=== PATIENT | female | born 2000 | race Hispanic/Latino ===

== ENCOUNTER 2019-05-08 20:30 | Emergency (ER) | payer BC, OTHER ==
[~2019-05-08] VITALS: Ht 154.9 cm; Wt 99.8 kg
[~2019-05-08 20:30] MED LIST: METHYLPHENIDATE; Z LITHIUM CARBON; [UNRECOGNIZED DRUG - OTHER]
[2019-05-08 21:16] LABS: STREPTOCOCCUS GRP A ANTIGEN NEGATIVE (NEGATIVE)
[2019-05-08 21:31] LABS: INFLUENZAE A&B ANTIGEN (RAPID) NEGATIVE (NEGATIVE)
--- NOTE | 2019-05-08 22:47 | Diagnostic Imaging Report ---
EXAMINATION: CHEST 2 VIEWS INDICATION: Fever, cough. COMPARISON: None FINDINGS: TUBES and LINES: None. LUNGS: Lungs are well inflated. Mild bronchial wall thickening. No evidence of lobar pneumonia. PLEURA: No pleural effusion or pneumothorax. HEART AND MEDIASTINUM: The cardiomediastinal silhouette is unremarkable. BONES AND SOFT TISSUES: No acute osseous lesion. Soft tissues are unremarkable. UPPER ABDOMEN: No free air under the diaphragm. IMPRESSION: Mild bronchial wall thickening, which may represent bronchitis in the setting of cough. No evidence of lobar pneumonia. Signed by: Dr. Eloisa Nathan MD on 05/08/2019 10:44 PM
== END 2019-05-08 23:10 | disposition home or self-care (01) ==
LOC: ER 20:30
DX: R05 Cough (principal); J20.9 Acute bronchitis, unspecified; B34.9 Viral infection, unspecified; F17.210 Nicotine dependence, cigarettes, uncomplicated
CPT/HCPCS: 71046; 83518; 87070; 87400; 99283

== ENCOUNTER 2019-06-11 08:47 | Emergency (ER) | payer BC, OTHER ==
[~2019-06-11] VITALS: Ht 154.9 cm; Wt 99.8 kg
--- OUTSIDE RECORDS SUMMARY | 2019-06-11 08:50 | XMS REPORT ---
Author Author [facility] Address Unknown Phone Unavailable Care Team Providers Care President [employer] Name Role Phone ALISHA ALVAREZ PP TERENCE HERNANDEZ Unavailable Unavailable Payers Payer Name Policy Type Policy Number Effective Date Expiration Date [facility] [id number] 2008 00:00:00 [facility] [id number] 2008 00:00:00 Problems This patient has no known problems. Allergies, Adverse Reactions, Alerts This patient has no known allergies or adverse reactions. Medications Ordered Medication Name Filled Medication Name Start Date Stop Date Current Medication? Ordering Clinician Indication Dosage Frequency Signature (SIG) Comments Components [place] Carbonate 300 Mg Capsule [place] Carbonate 300 Mg Capsule Yes Methadine Methadine Yes Methylphenidate Hcl (Ritalin La) 30 Mg Cpmp.50.50 Methylphenidate Hcl (Ritalin La) 30 Mg Cpmp.50.50 Yes Procedures and Interventions Procedure Date / Time Performed Performing Clinician X-ray of chest, two views 2019-05-08 00:00:00 TERENCE HERNANDEZ Encounters Start Date/Time End Date/Time Encounter Type Admission Type Attending Clinicians Care Facility Care Department Encounter ID 2019-05-08 20:30:00 2019-05-08 23:10:00 Departed Emergency Room 1 TERENCE HERNANDEZ [facility] [id number] Results Test Description Test Time Test Comments Text Results Atomic Results Result Comments CHEST 2 VIEWS 2019-05-08 22:42:00 [place] [address] Patient Name: RICHIE BENOIT MR #: [id number] : 2000 Age/Sex: 18/F Req #: [id number] Adm Physician: Ordered by: TERENCE HERNANDEZ DO Report #: [id number] Location: ER Room/Bed: Procedure: [id number] DX/CHEST 2 VIEWS Exam Date: 05/08/19 Exam Time: 2128 REPORT STATUS: Signed EXAMINATION: CHEST 2 VIEWS INDICATION: Fever, cough. COMPARISON: None FINDINGS: TUBES and LINES: None. LUNGS: Lungs are well inflated. Mild bronchial wall thickening. No evidence of lobar pneumonia. PLEURA: No pleural effusion or pneumothorax. HEART AND MEDIASTINUM: The cardiomediastinal silhouette is unremarkable. BONES AND SOFT TISSUES: No acute osseous lesion. Soft tissues are unremarkab le. UPPER ABDOMEN: No free air under the diaphragm. IMPRESSION: Mild bronchial wall thickening, which may represent bronchitis in the setting of cough. No evidence of lobar pneumonia. Signed by: Dr. Ramesh Vera MD on 05/08/2019 10:44 PM Dictated By: RAMESH VERA MD 43 Transcribed By: ADAN on 05/08/192243 COPY TO: TERENCE HERNANDEZ DO Influenza Virus Types A,B Antigen 2019-05-08 21:31:00 Influenza Virus Types A,B Antigen (test zzov=83654-2) NEGATIVE NEGATIVE Group A Streptococcus [id number] 21:16:00* Test Item Value Reference Range Comments Group A Streptococcus Screen (test agbz=07095-2) NEGATIVE NEGATIVE
[2019-06-11 08:54] VITALS: BP 149/93
[2019-06-11] MEDS ORDERED: PREDNISONE 20 MG TAB PO ONE (09:00)
[2019-06-11] MEDS ORDERED: ALBUTEROL/IPRATROPIUM 3 ML NEB NEB ONE (09:00)
[2019-06-11] MEDS ORDERED: ONDANSETRON HCL 4 MG ORAL DISINTEGRATING TAB PO ONE (09:00)
[2019-06-11] MEDS ORDERED: KETOROLAC TROMETHAMINE 60 MG/2 ML VIAL IM ONE (09:00)
--- NOTE | 2019-06-11 09:43 | Diagnostic Imaging Report ---
Comparison: 05/08/2019 History: Cough, shortness of breath Findings: Lungs clear. No pleural effusions or pneumothorax. The heart shadow and pulmonary vascularity are normal in appearance. The thoracic aorta appears normal in caliber. No skeletal abnormalities are visualized. Impression: No evidence of acute cardiopulmonary disease. Signed by: Xavier Paulino MD on 06/11/2019 9:40 AM
[2019-06-11] MEDS ORDERED: PROAIR HFA INH8.5 GM PO (09:54)
[2019-06-11] MEDS ORDERED: AZITHROMYCIN500 MG PO (09:54)
[2019-06-11] MEDS ORDERED: PREDNISONE20 MG PO (09:54)
== END 2019-06-11 10:07 | disposition home or self-care (01) ==
LOC: ER 08:47
DX: R07.89 Other chest pain (principal); R05 Cough; J45.909 Unspecified asthma, uncomplicated
CPT/HCPCS: 71046; 81025; 99283; J1885; J7512; Q0162

== ENCOUNTER 2020-01-15 03:57 | Emergency (ER) | payer BC, OTHER ==
[~2020-01-15] VITALS: Ht 154.9 cm; Wt 99.8 kg
[~2020-01-15 03:57] MED LIST changes: +AZITHROMYCIN500 MG PO; +PREDNISONE20 MG PO; +PROAIR HFA INH8.5 GM PO
--- NOTE | 2020-01-15 04:07 | NUR ---
bladder scan amout:451ml
--- NOTE | 2020-01-15 04:10 | Emergency Department Note ---
History of Present Illnes History of Present Illness Chief Complaint: Abdominal Complaints History of Present Illness This is a 19 year old female WALKS IN TO ED FOR CONCERNS OF SUPRAPUBIC PAIN. PAIN STARTED ABOUT 6 HOURS AGO. STATES SINCE THE PAIN IS SO BAD SHE IS UNABLE TO URINATE. DR COSTA IN TRIAGE, UA/BLADDER SCAN BEING OBTAINED . Historian: Patient Arrival Mode: Car Chopper Feeder Required: No Onset (how long ago): hour(s) (6) Location: lower abd/supra pubic Quality: pain Radiation: Reports non-radiation Severity: moderate Onset quality: gradual Duration (how long): hour(s) (6) Timing of current episode: constant Progression: worsening Chronicity: new Context: Denies recent illness, Denies recent surgery Relieving factors: none Exacerbating factors: none Associated symptoms: Reports other (unable to urinate) Past Medical/Family History Physician Review I have reviewed the patient's past medical and family history. Any updates have been documented here. Past Medical History Recent Fever: No Clinical Suspicion of Infectio: No New/Unexplained Change in Ment: No Other Medical History: BIPOLAR DISORDER, ADHD. ANXIETY Past Surgical History: None Social History Smoking Cessation: Never Smoker Alcohol Use: None Any Illegal Drug Use: No Family History Family history of heart diseas: No Other Last Tetanus: UNKNOWN Review of Systems Review of Systems Constitutional: Reports no symptoms EENTM: Reports no symptoms Cardiovascular: Reports no symptoms Respiratory: Reports no symptoms Gastrointestinal: Reports no symptoms Genitourinary: Reports as per HPI Musculoskeletal: Reports no symptoms Integumentary: Reports no symptoms Neurological: Reports no symptoms Psychological: Reports no symptoms Endocrine: Reports no symptoms Hematological/Lymphatic: Reports no symptoms Physical Exam Related Data Allergies: Coded Allergies: No Known Drug Allergies (Verified Allergy, Mild, 03/02/10) Triage Vital Signs Vital Signs Date Time Temp Pulse Resp B/P (MAP) Pulse Ox O2 Delivery O2 Flow Rate FiO2 01/15/20 04:03 98.7 104 18 122/92 100 Room Air Vital signs reviewed: Yes Physical Exam CONSTITUTIONAL Constitutional: Present well-developed, Present well-nourished HENT HENT: Present normocephalic, Present atraumatic, Present oropharynx clear/moist, Present nose normal HENT L/R: Present left ext ear normal, Present right ext ear normal EYES Eyes: Reports PERRL, Reports conjunctivae normal NECK Neck: Present ROM normal PULMONARY Pulmonary: Present effort normal, Present breath sounds normal CARDIOVASCULAR Cardiovascular: Present regular rhythm, Present heart sounds normal, Present capillary refill normal, Present normal rate GASTROINTESTINAL Abdominal: Present soft, Present bowel sounds normal, Present tender (moderate supra pubic, bladder distended) GENITOURINARY Genitourinary: Present exam deferred SKIN Skin: Present warm, Present dry MUSCULOSKELETAL Musculoskeletal: Present ROM normal NEUROLOGICAL Neurological: Present alert, Present oriented x 3, Present no gross motor or sensory deficits PSYCHOLOGICAL Psychological: Present mood/affect normal, Present judgement normal Results Laboratory Lab results reviewed: Yes Laboratory comments Laboratory Tests Test 01/15/20 04:10 Urine Color Yellow (YELLOW) Urine Clarity Sl cloudy (CLEAR) Urine pH 6.5 (5 - 7) Urine Specific [place] >=1.030 (1.010-1.025) Urine Protein Negative (NEGATIVE) Urine Glucose (UA) Negative (NEGATIVE) Urine Ketones Negative (NEGATIVE) Urine Blood Negative (NEGATIVE) Urine Nitrite Negative (NEGATIVE) Urine Bilirubin Negative (NEGATIVE) Urine Urobilinogen 0.2 mg/dL (0.2 - 1) Urine Leukocyte Esterase Negative (NEGATIVE) Urine RBC 0-5 /HPF (0-5) Urine WBC 6-10 /HPF (0-5) Urine Epithelial Cells Few /LPF (NONE) Urine Amorphous Sediment Few (FEW) Urine Bacteria Moderate /HPF (NONE) Urine Test Negative (NEGATIVE) Assessment & Plan Medical Decision Making MDM pt with suprapubic pain and unable to urinate bladder scan performed and shows 451 cc urine in bladder cates cath ordered, ua ordered, to eval for uti cates cath placed 700 cc urine output Assessment & Plan Final Impression: (1) Urinary retention (2) UTI (urinary tract infection) Depart Disposition: HOME, SELF-CARE Last Vital Signs Date Time Temp Pulse Resp B/P (MAP) Pulse Ox O2 Delivery O2 Flow Rate FiO2 01/15/20 04:03 98.7 104 18 122/92 100 Room Air Home Meds Active Scripts Azithromycin (AZITHROMYCIN) 500 Mg Tablet, 1 TAB PO DAILY for 5 Days, #5 Prov:MIAH IVAN 06/11/19 Prednisone (PREDNISONE) 20 Mg Tab, 60 MG PO DAILY for 5 Days, #15 TAB start tomorrow Prov:MIAH IVAN 06/11/19 Albuterol Sulf* (PROAIR HFA INHALER*) 8.5 Gm Inh, 2 INH PO Q4HR PRN for SHORTNESS OF BREATH for 14 Days, #1 INH dispense with spacer Prov:MIAH IVAN 06/11/19 Reported Medications [Methadine] No Conflict Check 09/26/10 Methylphenidate Hcl (Ritalin La) 30 Mg Cpmp.50.50 09/26/10 [place] Carbonate ([place] Carbonate) 300 Mg Capsule 09/26/10 JENNIFER COSTA MD Jan 15, 2020 04:10
--- NOTE | 2020-01-15 04:24 | NUR ---
700CC OUTPUT UPON MUÑOZ INSERTION
[2020-01-15 04:26] LABS: CLARITY,URINE SL CLOUDY (CLEAR); COLOR,URINE YELLOW (YELLOW); KETONES,URINE NEGATIVE (NEGATIVE); LEUKOCYTE ESTERASE ,URINE NEGATIVE (NEGATIVE); NITRITE,URINE NEGATIVE (NEGATIVE); PROTEIN,URINE DIPSTICK NEGATIVE (NEGATIVE)
[2020-01-15 04:28] LABS: BILIRUBIN,URINE NEGATIVE (NEGATIVE); URINE UROBILINOGEN 0.2 mg/dL (0.2 - 1)
[2020-01-15 04:34] LABS: AMORPHOUS SEDIMENT,URINE FEW (FEW); BACTERIA,URINE MODERATE /HPF; EPITHELIAL CELLS,URINE FEW /LPF; RBC,URINE 0-5 /HPF (0-5)
--- OUTSIDE RECORDS SUMMARY | 2020-01-15 04:41 | XMS REPORT | Continuity of Care Document ---
Author Author [facility] t Organization [facility] Address [address] [place] [address] Phone Unavailable Care Team Providers Care Oxygen Therapy Technician Name Role Phone NO, PCP PCP Unavailable Kristian Siddiqui MD Attphys GILLIAN IVAN Attphys Unavailable TERENCE HERNANDEZ Attphys Unavailable Payers Payer Name Policy Type Policy Number Effective Date Expiration Date [facility] [id number] 2008 00:00:00 [facility] [id number] 2008 00:00:00 [facility] Problems This patient has no known problems. Allergies, Adverse Reactions, Alerts This patient has no known allergies or adverse reactions. Medications Ordered Medication Name Filled Medication Name Start Date Stop Da te Current Medication? Ordering Clinician Indication Dosage Frequency Signature (SIG) Comments Components Source Albuterol Sulfate (Proair Hfa Inhaler*) 8.5 Gm Inh Alb uterol Sulfate (Proair Hfa Inhaler*) 8.5 Gm Inh 2019-06-11 00:00:00 Yes Jamar Ivan 2 Every 4 Hours as needed for Shortness Of Breath [facility] Azithromycin 500 Mg Tablet Azithromycin 500 Mg Tablet 2019-06-11 00:0 0:00 Yes Jamar Ivan 1 Daily [facility] Prednisone 20 Mg Tab Prednisone 20 Mg Tab 2019-06-11 00:00:00 Yes Jamar Ivan 60 Daily [facility] [place] Carbonate 300 Mg Capsule [place] Carbonate 300 Mg Capsule Yes [facility] Methadine Methadine Yes [facility] Methylphenidate Hcl (Ritalin La) 30 Mg Cpmp.50.50 Meth ylphenidate Hcl (Ritalin La) 30 Mg Cpmp.50.50 Yes [facility] Procedures Procedure Date / Time Performed Performing Clinician [facility] e X-ray of chest, two views 2019-06-11 00:00:00 JAMAR IVAN [facility] X-ray of chest, two views 2019-05-08 00:00:00 TERENCE HERNANDEZ [facility] Encounters Start Date/Time End Date/Time Encounter Type Admission Type [facility] Care Department Encounter ID Source 2019-06-16 22:20:27 2019-06-16 23:45:00 [facility] [id number] 2019-06-11 08:47:00 2019-06-11 10:07:00 Departed Emergency Room 1 JAMAR IVAN [facility] [id number] [facility] 2019-05-08 20:30:00 2019-05-08 23:10:00 Departed Emergency Room 1 TERENCE HERNANDEZ [facility] [id number] [facility] Results Test Description Test Time Test Comments Results Result Comments Source CHEST 2 VIEWS 2019-06-11 09:39:00 [facility] [address] [place] [address] Patient Name: RICHIE BENOIT MR #: [id number] : 2000 Age/Sex: 18/F Req #: [id number] Adm Physician: Ordered by: JAMAR IVAN Report #: [id number] Location: ER Room/Bed: Procedure: [id number] DX/CHEST 2 VIEWS Exam Date: 06/11/19 Exam Time: 914 REPORT STATUS: Signed Comparison: 05/08/2019 History: Cough, shortness of breath Findings: Lungs clear. No pleural effusions or pneumothorax. The heart shadow and pulmonary vascularity are normal in appearance. The thoracic aorta appears normal in caliber. No skeletal abnormalities are visualized. Impression: No evidence of acute cardiopulmonary disease. Signed by: Arabella Elizabeth MD on 06/11/2019 9:40 AM Dictated By: ARABELLA ELIZABETH MD 9 Transcribed By: ADAN on 06/11/19939 COPY TO: JAMAR IVAN Urine Test 2019-06-11 09:15:00 Test Item Urine Test (test code = 2106-3) NEGATIVE NEGATIVE [facility] [id number] 22:42:00 [facility] [address] [place] [address] Patient Name: RICHIE BENOIT MR #: [id number] : 2000 Age/Sex: 18/F Req #: [id number] Adm Physician: Ordered by: TERENCE HERNANDEZ DO Report #: [id number] Location: ER Room/Bed: Procedure: [id number] DX/CHEST 2 VIEWS Exam Date: 05/08/19 Exam Time: 2128 REPORT STATUS: Signed EXAMI NATION: CHEST 2 VIEWS INDICATION: Fever, cough. COMPARISON: None FINDINGS: TUBES and LINES: None. LUNGS: Lungs are well infla constantin. Mild bronchial wall thickening. No evidence of lobar pneumonia. PLE URA: No pleural effusion or pneumothorax. HEART AND MEDIASTINUM: The car diomediastinal silhouette is unremarkable. BONES AND SOFT TISSUES: No acute osseous lesion. Soft tissues are unremarkable. UPPER ABDOMEN: No f ree air under the diaphragm. IMPRESSION: Mild bronchial wall thicken ing, which may represent bronchitis in the setting of cough. No evidence of lo bar pneumonia. Signed by: Dr. Ramesh Vera MD on 05/08/2019 10:44 PM D ictated By: RAMESH VERA MD 2 244 Transcribed By: ADAN on 05/08/19 7556 COPY TO: TERENCE HERNANDEZ DO Influenza Virus Types A,B [id number] 21:31:00* Test Item Value Reference Range Interpretation Comments Influenza Virus Types A,B Antigen (test code = 45009-6) NEGATIVE [facility]IVE [facility] Antigen 2019-05-08 21:31:00* Test Item Value Reference Range Interpretation Comments Influenza Virus Types A,B Antigen (test code = 22137-6) NEGATIVE [facility]GATIVE [facility] Streptococcus [id number] 21:16:00* Test Item Value Reference Range Interpretation Comments Group A Streptococcus Screen (test code = 34525-1) NEGATIVE NEG ATIVE [facility] Streptococcus [id number] 21:16:00* Test Item Value Reference Range Interpretation Comments Group A Streptococcus Screen (test code = 78665-7) NEGATIVE NEG ATIVE [facility]
== END 2020-01-15 05:33 | disposition home or self-care (01) ==
LOC: ER 04:39
DX: R33.9 Retention of urine, unspecified (principal); N39.0 Urinary tract infection, site not specified; R10.30 Lower abdominal pain, unspecified; F31.9 Bipolar disorder, unspecified; F41.9 Anxiety disorder, unspecified; F90.9 Attention-deficit hyperactivity disorder, unspecified type
CPT/HCPCS: 51700; 81001; 81025; 87086; 99283

== ENCOUNTER 2020-04-15 11:24 | Emergency (ER) | payer BC, OTHER ==
[~2020-04-15] VITALS: Ht 154.9 cm; Wt 99.8 kg
[2020-04-15 13:36] VITALS: BP 134/74
== END 2020-04-15 13:37 | disposition home or self-care (01) ==
LOC: ER 11:54
DX: L25.9 Unspecified contact dermatitis, unspecified cause (principal); J45.909 Unspecified asthma, uncomplicated; F31.9 Bipolar disorder, unspecified
CPT/HCPCS: 99282

== ENCOUNTER 2020-09-18 04:36 | Emergency (ER) | payer BC, OTHER ==
[2020-09-18] MEDS ORDERED: PERIDEX473 M1 PO (04:48)
[2020-09-18] MEDS ORDERED: AUGMENTIN 875-1 EACH PO (04:48)
[2020-09-18 05:04] LABS: AMPHETAMINES SCREEN,URINE NEGATIVE (NEGATIVE); BENZODIAZEPINES SCREEN,URINE NEGATIVE (NEGATIVE); PHENCYCLIDINE SCREEN,URINE NEGATIVE (NEGATIVE)
== END 2020-09-18 05:22 | disposition home or self-care (01) ==
LOC: ER 04:45
DX: K02.9 Dental caries, unspecified (principal)
CPT/HCPCS: 80307; 99283

== ENCOUNTER 2020-11-20 17:22 | Emergency (ER) | payer BC, OTHER ==
[~2020-11-20] VITALS: Ht 154.9 cm; Wt 99.8 kg
[~2020-11-20 17:22] MED LIST changes: +AUGMENTIN 875-1 EACH PO; +PERIDEX473 M1 PO
[2020-11-20 17:57] LABS: BACTERIA,URINE FEW /HPF; CLARITY,URINE HAZY (CLEAR); COLOR,URINE YELLOW (YELLOW); EPITHELIAL CELLS,URINE MODERATE /LPF; KETONES,URINE NEGATIVE (NEGATIVE); LEUKOCYTE ESTERASE ,URINE NEGATIVE (NEGATIVE); NITRITE,URINE NEGATIVE (NEGATIVE); PROTEIN,URINE DIPSTICK 1+ (NEGATIVE); RBC,URINE 0-5 /HPF (0-5); URINE UROBILINOGEN 0.2 mg/dL (0.2 - 1); WBC,URINE (MAN) 0-5 /HPF (0-5)
[2020-11-20] MEDS ORDERED: ONDANSETRON HCL INJ 2MG/ML 2ML 2 MG/ML VIAL IV STA (21:05)
[2020-11-20] MEDS ORDERED: MORPHINE SULFATE INJ 4 MG/ML INJ 1ML IV ONE (21:15)
[2020-11-20] MEDS ORDERED: MORPHINE SULFATE 5 MG/ML VIAL IV ONE (21:15)
[2020-11-20 21:20] LABS: BASOPHILS # (AUTO) 0.1 (0.0-0.1); BASOPHILS % 0.5 % (0.0-1.0); EOSINOPHILS # (AUTO) 0.3 (0.0-0.4); EOSINOPHILS % 3.5 % (0.0-6.0); HEMATOCRIT 39.2 % (34.2-44.1); HEMOGLOBIN 12.9 g/dL (12.0-16.0); LYMPHOCYTES # (AUTO) 3.8 (1.0-3.2); LYMPHOCYTES % 40.3 % (18.0-39.1); MEAN CORPUSCULAR HEMOGLOBIN 27.7 pg (28-32); MEAN CORPUSCULAR HGB CONC 32.9 g/dL (31-35); MEAN CORPUSCULAR VOLUME 84.3 fL (81-99); MONOCYTES # (AUTO) 0.5 (0.2-0.8); MONOCYTES % 5.1 % (4.4-11.3); NEUTROPHILS # (AUTO) 4.7 (2.1-6.9); NEUTROPHILS % 50.3 % (38.7-80.0); PLATELET COUNT 349 x10e3/uL (140-360); RED BLOOD COUNT 4.65 x10e6/uL (3.6-5.1); RED CELL DISTRIBUTION WIDTH 13.2 % (11.7-14.4)
[2020-11-20 21:38] LABS: ALBUMIN 4.2 g/dL (3.5-5.0); ALBUMIN/GLOBULIN RATIO 1.2 (0.8-2.0); ANION GAP 11.7 mmol/L (8-16); CALCIUM 9.4 mg/dL (8.4-10.2); CREATININE, SERUM 0.77 mg/dL (0.57-1.11); POTASSIUM 3.7 mmol/L (3.5-5.1)
[2020-11-20] MEDS ORDERED: SODIUM CHLORIDE 0.9% 50ML 50 ML ONE (21:50)
[2020-11-20] MEDS ORDERED: IOPAMIDOL 370 MG/ML 200 ML INFUS..BTL INJ ONE (21:50)
[2020-11-20] MEDS ORDERED: PEPCID20 MG PO (23:02)
== END 2020-11-20 23:30 | disposition home or self-care (01) ==
LOC: ER 17:51
DX: R10.84 Generalized abdominal pain (principal); J45.909 Unspecified asthma, uncomplicated; F41.9 Anxiety disorder, unspecified; F90.9 Attention-deficit hyperactivity disorder, unspecified type; F31.9 Bipolar disorder, unspecified
CPT/HCPCS: 36415; 74177; 80053; 81001; 81025; 83690; 85025; 87086; 99283; J2270 ×2; J2405; Q9967

== ENCOUNTER 2020-11-29 16:42 | Emergency (ER) | payer BC, OTHER ==
[~2020-11-29] VITALS: Ht 154.9 cm; Wt 99.8 kg
[~2020-11-29 16:42] MED LIST changes: +PEPCID20 MG PO
[2020-11-29 17:16] LABS: CLARITY,URINE SL CLOUDY (CLEAR); COLOR,URINE YELLOW (YELLOW); KETONES,URINE NEGATIVE (NEGATIVE); LEUKOCYTE ESTERASE ,URINE NEGATIVE (NEGATIVE); NITRITE,URINE NEGATIVE (NEGATIVE); PROTEIN,URINE DIPSTICK 2+ (NEGATIVE)
[2020-11-29 17:17] LABS: URINE UROBILINOGEN 0.2 mg/dL (0.2 - 1)
[2020-11-29 17:24] LABS: BACTERIA,URINE RARE /HPF; EPITHELIAL CELLS,URINE MODERATE /LPF; RBC,URINE 0-5 /HPF (0-5); WBC,URINE (MAN) 0-5 /HPF (0-5)
[2020-11-29 19:41] VITALS: BP 118/74
== END 2020-11-29 19:21 | disposition home or self-care (01) ==
LOC: ER 17:10
DX: M79.631 Pain in right forearm (principal); Y04.8XXA Assault by other bodily force, initial encounter; Y92.511 Restaurant or cafe as the place of occurrence of the external cause; J45.909 Unspecified asthma, uncomplicated; F31.9 Bipolar disorder, unspecified; F90.9 Attention-deficit hyperactivity disorder, unspecified type; R10.9 Unspecified abdominal pain
CPT/HCPCS: 81001; 81025; 99284

== ENCOUNTER 2021-02-22 08:54 | Emergency (ER) | payer BC ==
[~2021-02-22] VITALS: Ht 154.9 cm; Wt 105.9 kg
[2021-02-22] MEDS ORDERED: PREDNISONE20 MG PO (09:48)
[2021-02-22] MEDS ORDERED: VENTOLIN HFA18 GM INH (09:48)
[2021-02-22] MEDS ORDERED: AZITHROMYCIN250 MG PO (09:48)
== END 2021-02-22 09:55 | disposition home or self-care (01) ==
LOC: FSED 09:00
DX: J06.9 Acute upper respiratory infection, unspecified (principal); J45.909 Unspecified asthma, uncomplicated; F90.9 Attention-deficit hyperactivity disorder, unspecified type; Z79.899 Other long term (current) drug therapy
CPT/HCPCS: 81003; 81025; 83518; 87400; 99283

== ENCOUNTER 2021-03-13 23:31 | Emergency (ER) | payer BC ==
[~2021-03-13] VITALS: Ht 154.9 cm; Wt 104.3 kg
[~2021-03-13 23:31] MED LIST changes: +AZITHROMYCIN250 MG PO; +VENTOLIN HFA18 GM INH
[2021-03-14] MEDS ORDERED: SODIUM CHLORIDE 0.9% 1000ML 1,000 ML IV SCH
[2021-03-14 00:09] LABS: BASOPHILS # (AUTO) 0.1 (0.0-0.1); BASOPHILS % 0.5 % (0.0-1.0); EOSINOPHILS # (AUTO) 0.4 (0.0-0.4); EOSINOPHILS % 3.4 % (0.0-6.0); HEMATOCRIT 38.4 % (34.2-44.1); HEMOGLOBIN 12.3 g/dL (12.0-16.0); LYMPHOCYTES # (AUTO) 4.3 (1.0-3.2); LYMPHOCYTES % 37.5 % (18.0-39.1); MEAN CORPUSCULAR HEMOGLOBIN 27.8 pg (28-32); MEAN CORPUSCULAR VOLUME 86.7 fL (81-99); MONOCYTES # (AUTO) 0.6 (0.2-0.8); MONOCYTES % 4.8 % (4.4-11.3); NEUTROPHILS # (AUTO) 6.1 (2.1-6.9); NEUTROPHILS % 53.6 % (38.7-80.0); PLATELET COUNT 339 x10e3/uL (140-360); RED BLOOD COUNT 4.43 x10e6/uL (3.6-5.1); RED CELL DISTRIBUTION WIDTH 12.8 % (11.7-14.4)
[2021-03-14 00:36] LABS: ALBUMIN/GLOBULIN RATIO 1.3 (0.8-2.0); ANION GAP 15.7 mmol/L (8-16); CALCIUM 9.5 mg/dL (8.4-10.2); CREATININE, SERUM 0.85 mg/dL (0.57-1.11); POTASSIUM 3.7 mmol/L (3.5-5.1)
[2021-03-14 00:56] LABS: CLARITY,URINE CLOUDY (CLEAR); COLOR,URINE YELLOW (YELLOW); KETONES,URINE NEGATIVE (NEGATIVE); LEUKOCYTE ESTERASE ,URINE 1+ (NEGATIVE); NITRITE,URINE NEGATIVE (NEGATIVE); PROTEIN,URINE DIPSTICK NEGATIVE (NEGATIVE); URINE UROBILINOGEN 0.2 mg/dL (0.2 - 1)
[2021-03-14 01:08] LABS: AMORPHOUS SEDIMENT,URINE MANY (FEW); BACTERIA,URINE MANY /HPF; EPITHELIAL CELLS,URINE MANY /LPF; RBC,URINE 0-5 /HPF (0-5); WBC,URINE (MAN) 21-50 /HPF (0-5)
[2021-03-14] MEDS ORDERED: CEPHALEXIN500 MG PO (01:22)
== END 2021-03-14 01:51 | disposition home or self-care (01) ==
LOC: ER 23:50
DX: R10.31 Right lower quadrant pain (principal); N39.0 Urinary tract infection, site not specified; R19.7 Diarrhea, unspecified; F41.9 Anxiety disorder, unspecified; F90.9 Attention-deficit hyperactivity disorder, unspecified type; F31.9 Bipolar disorder, unspecified
CPT/HCPCS: 36415; 71045; 74018; 80053; 81001; 83690; 84702; 85025; 93005; 99284; C9113; J7030

== ENCOUNTER 2021-05-14 00:28 | Emergency (ER) | payer BC ==
[~2021-05-14] VITALS: Ht 154.9 cm; Wt 104.3 kg
[~2021-05-14 00:28] MED LIST changes: +CEPHALEXIN500 MG PO
[2021-05-14] MEDS ORDERED: KETOROLAC TROMETHAMINE 60 MG/2 ML VIAL IM ONE (00:45)
[2021-05-14] MEDS ORDERED: DONNATAL/LIDOCAINE/MAALOX 30 ML SUSP PO ONE (00:45)
[2021-05-14] MEDS ORDERED: PANTOPRAZOLE SO40 MG PO (00:54)
[2021-05-14] MEDS ORDERED: DICYCLOMINE HCL20 MG PO (00:54)
[2021-05-14] MEDS ORDERED: IBUPROFEN600 MG PO (00:54)
[2021-05-14] MEDS ORDERED: LIDOCAINE VISC 2% SOLN 15 ML UDC ONE (01:51)
[2021-05-14] MEDS ORDERED: MAGNESIUM/ALUMINUM/SIMETHICONE 30 ML UDC ONE (01:52)
[2021-05-14] MEDS ORDERED: BELLADONNA ALK/PHENOBARBITAL 5 ML UDC ONE (01:52)
== END 2021-05-14 01:51 | disposition home or self-care (01) ==
LOC: ER 00:33
DX: Z48.01 Encounter for change or removal of surgical wound dressing (principal); R10.13 Epigastric pain; J45.909 Unspecified asthma, uncomplicated; F41.9 Anxiety disorder, unspecified; F31.9 Bipolar disorder, unspecified
CPT/HCPCS: 99283; J1885

== ENCOUNTER 2021-06-04 18:51 | Emergency (ER) | payer BC ==
[~2021-06-04] VITALS: Ht 154.9 cm; Wt 104.3 kg
[~2021-06-04 18:51] MED LIST changes: +DICYCLOMINE HCL20 MG PO; +IBUPROFEN600 MG PO; +PANTOPRAZOLE SO40 MG PO
== END 2021-06-04 20:34 | disposition left against medical advice (07) ==
LOC: ER 19:01
DX: O20.9 Hemorrhage in early pregnancy, unspecified (principal)

== ENCOUNTER 2021-06-08 17:41 | Emergency (ER) | payer BC ==
[~2021-06-08] VITALS: Ht 154.9 cm; Wt 104.3 kg
[2021-06-08 18:46] LABS: BASOPHILS % 0.4 % (0.0-1.0); EOSINOPHILS # (AUTO) 0.2 (0.0-0.4); EOSINOPHILS % 2.3 % (0.0-6.0); HEMATOCRIT 37.9 % (34.2-44.1); HEMOGLOBIN 12.6 g/dL (12.0-16.0); LYMPHOCYTES % 32.5 % (18.0-39.1); MEAN CORPUSCULAR HEMOGLOBIN 27.8 pg (28-32); MEAN CORPUSCULAR HGB CONC 33.2 g/dL (31-35); MEAN CORPUSCULAR VOLUME 83.7 fL (81-99); MONOCYTES # (AUTO) 0.4 (0.2-0.8); MONOCYTES % 3.8 % (4.4-11.3); NEUTROPHILS # (AUTO) 5.6 (2.1-6.9); NEUTROPHILS % 60.9 % (38.7-80.0); PLATELET COUNT 359 x10e3/uL (140-360); RED BLOOD COUNT 4.53 x10e6/uL (3.6-5.1)
[2021-06-08 18:50] LABS: CLARITY,URINE CLOUDY (CLEAR); COLOR,URINE YELLOW (YELLOW); KETONES,URINE NEGATIVE (NEGATIVE); LEUKOCYTE ESTERASE ,URINE NEGATIVE (NEGATIVE); NITRITE,URINE NEGATIVE (NEGATIVE); PROTEIN,URINE DIPSTICK NEGATIVE (NEGATIVE); URINE UROBILINOGEN 0.2 mg/dL (0.2 - 1)
[2021-06-08 18:58] LABS: BACTERIA,URINE MANY /HPF; EPITHELIAL CELLS,URINE FEW /LPF; RBC,URINE 21-50 /HPF (0-5)
== END 2021-06-08 19:18 | disposition home or self-care (01) ==
LOC: ER 18:30
DX: O20.9 Hemorrhage in early pregnancy, unspecified (principal); R10.30 Lower abdominal pain, unspecified; J45.909 Unspecified asthma, uncomplicated; F41.9 Anxiety disorder, unspecified; F31.9 Bipolar disorder, unspecified; F90.9 Attention-deficit hyperactivity disorder, unspecified type
CPT/HCPCS: 36415; 81001; 84702; 85025; 86900; 99283

== ENCOUNTER 2021-07-04 09:50 | Emergency (ER) | payer BC ==
[~2021-07-04] VITALS: Ht 154.9 cm; Wt 106.6 kg
[2021-07-04] MEDS ORDERED: FLONASE ALLERG9.9 ML INH (12:48)
== END 2021-07-04 13:37 | disposition home or self-care (01) ==
LOC: FSED 10:04
DX: O99.511 Diseases of the respiratory system complicating pregnancy, first trimester (principal); R50.9 Fever, unspecified; F31.9 Bipolar disorder, unspecified; F90.9 Attention-deficit hyperactivity disorder, unspecified type
CPT/HCPCS: 83518; 87400; 99282

== ENCOUNTER 2021-08-27 18:56 | Emergency (ER) | payer BC, OTHER ==
[~2021-08-27] VITALS: Ht 154.9 cm; Wt 102.1 kg
[~2021-08-27 18:56] MED LIST changes: +FLONASE ALLERG9.9 ML INH
[2021-08-27 20:45] VITALS: BP 132/90
== END 2021-08-27 20:45 | disposition home or self-care (01) ==
LOC: FSED 19:26
DX: R50.9 Fever, unspecified (principal); U07.1 COVID-19; F41.9 Anxiety disorder, unspecified; F31.9 Bipolar disorder, unspecified; F90.9 Attention-deficit hyperactivity disorder, unspecified type
CPT/HCPCS: 99282; U0002